=== PATIENT | female | born 1960 | race Caucasian/White ===

== ENCOUNTER 2023-05-27 08:43 | Outpatient (AMB) | payer OTHER, SELFPAY ==
--- NOTE | 2023-05-27 08:49 | A.OFFVIS_ITS ---
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 The patient states that she recently aggravated her shoulder while training for and participating in '[employer] She denies any weakness. She has tried Tylenol and anti- inflammatory medicines which gave her minimal relief. She has done physical therapy exercises which aggravated her pain. The patient states that she has not been able to train recently because of her pain. Most pain is along the anterior aspect of her shoulder. Allergies Latex, Natural Rubber Allergy (Verified 05/27/23 08:57) Rash Penicillins Allergy (Verified 05/27/23 08:57) Rash Medication List - Last Reconciled 05/27/23 by Joaquin Monroe MD albuterol sulfate 90 mcg/actuation 2 puffs inhalation Q6H PRN anastrozole 1 mg PO DAILY duloxetine 60 mg PO DAILY PFSH Surgical History (Updated 05/27/23 @ 08:58 by Ita Bustillo [facility]) History of hip replacement Hx of tonsillectomy H/O: hysterectomy H/O mastectomy Social History (Updated 05/27/23 @ 08:58 by Ita Bustillo [facility]) Patient Tobacco Use Status: Never used Tobacco Current occupational status: employed Current occupation: [employer] Physical Exam Vital Signs: BMI result Body Mass Index 22.3 Const Other: Well-nourished well-developed very friendly female awake alert and oriented x3 in no acute distress Extrem Other: Bilateral upper extremity examination shows good capillary refill, no skin lesions noted, normal sensation light touch Left shoulder examination shows decreased range of motion when compared to her right shoulder, 5/5 strength with supraspinatus testing, positive impingement signs, tenderness over her acromioclavicular joint, mild crepitus with range of motion Results Reviewed Results Reviewed: X-rays of the patient's left shoulder taken today show severe acromioclavicular joint narrowing, a type 2 acromion, moderate glenohumeral joint degenerative changes Assessment & Plan Assessment & Plan (1) Left shoulder pain: Code(s): M25.512 - Pain in left shoulder Plan Ms. Abraham presents with left shoulder pain and stiffness due to impingement syndrome, acromioclavicular joint arthritis, glenohumeral joint arthritis and adhesive capsulitis. I had a lengthy discussion with the patient regarding the treatment options. He is point she has failed continued non operative treatments. The risks and benefits of left shoulder arthroscopic surgery were discussed at length with the patient. The patient wishes to proceed with surgery. Surgery will most likely involve left shoulder diagnostic arthroscopy with distal clavicle excision, acromioplasty, anterior capsular release, glenohumeral joint debridement and manipulation under anesthesia. I will have my office contact the patient to pick a surgery date. She will continue with her activity modifications in the meantime. Feel free to call me at any time should questions regarding her orthopedic management arise. Thank you very much for asking me to see this very friendly patient. I spent 22 minutes in reviewing the patient's records and imaging studies, seeing the patient and documenting in the medical record. Orders: Orders XR shoulder LT min 2V Today M25.512 - Pain in left shoulder Coding Level of Care Code New Pt Level 2 (14399) Diagnoses Left shoulder pain M25.512
[2023-05-27 08:54] VITALS: BMI 22.3
== END 2023-05-27 09:18 | disposition home or self-care (01) ==
PROVIDERS: Visit Provider Orthopaedic Surgery
DX: M25.512 Pain in left shoulder (principal)
CPT/HCPCS: 99202

== ENCOUNTER 2023-05-27 09:07 | Outpatient (REF) | payer OTHER, SELFPAY ==
--- NOTE | ~2023-05-27 | XR_ITS ---
EXAMINATION: XR SHOULDER, LEFT CLINICAL INFORMATION: Left shoulder pain COMPARISON: None available. TECHNIQUE: Two views of the left shoulder. FINDINGS: Degenerative changes are seen at the glenohumeral joint. No fractures or dislocations. Calcification is noted overlying the region of the biceps tendon in the bicipital groove within the biceps tendon sheath. Calcifications are seen adjacent to a prominent coracoid process in the subcoracoid recess of the shoulder joint.. XR/XR shoulder LT min 2V IMPRESSION: 1. Degenerative changes glenohumeral joint. 2. Calcifications in the biceps tendon sheath and subcoracoid recess of the shoulder joint.
== END 2023-05-27 09:08 | disposition home or self-care (01) ==
LOC: HO.HOSX 09:07
PROVIDERS: Visit Provider Orthopaedic Surgery
DX: M25.512 Pain in left shoulder (principal)
CPT/HCPCS: 73030

== ENCOUNTER 2023-06-06 09:12 | Day surgery (SDC) | payer OTHER, SELFPAY ==
[2023-06-04 14:54] VITALS: BMI 22.3
--- NOTE | 2023-06-05 10:03 | P.CONAN_ITS ---
Documented by User: Sadaf Gayle NP 06/05/23 10:11 HPI - Anesthesia Eval Consult details Narrative: 62yo F for Left Shoulder Arthroscopy, distal clavicle excision, acromioplasty,capsular release manipulation Incomplete PMHx from surgical office and pt not reached by phone: Likely breast ca, ? asthma based on med list. PMFSH Active Problems Active Problems: All Active Problems (Updated 05/26/23 @ 11:41 by Joaquin Monroe MD) Left shoulder pain (Acute) Surgical History Surgical History (Updated 05/27/23 @ 08:58 by Ita Bustillo CMA) History of hip replacement Hx of tonsillectomy H/O: hysterectomy H/O mastectomy Social History Social History (Updated 05/27/23 @ 08:58 by Ita Bustillo CMA) Patient Tobacco Use Status: Never used Tobacco Use of substances other than those prescribed or required for medical reasons: No Are you DNR?: No Advance Directives: No Advance Directives Information Provided: Yes Current occupational status: employed Current occupation: [employer] Allergies Allergy/AdvReac Type Severity Reaction Status Date / Time Latex, Natural Rubber Allergy Rash Verified 06/06/23 09:55 Penicillins Allergy Rash Verified 06/06/23 09:55 Active Medications: Current Medications Clindamycin Phosphate (Cleocin) 900 mg in 50 mls @ 50 mls/hr IV PREOP ONE Stop: 06/06/23 06:51 Home Medications Medication Instructions Recorded Confirmed Last Taken Type albuterol sulfate 90 mcg/actuation 2 puff inhalation Q6H PRN wheezing 05/27/23 06/06/23 Unknown History aerosol inhaler anastrozole 1 mg tablet 1 mg PO DAILY 05/27/23 06/06/23 Unknown History duloxetine 60 mg capsule,delayed 60 mg PO DAILY 05/27/23 06/06/23 Unknown History release Exam Height,Weight and Vital Signs: Height 5 ft 11 in Weight 72.575 kg Assessment and Plan Assessment Anesthesia Assessment: Chart Reviewed Documented by User: Kendall Duncan MD 06/06/23 10:44 PMF Family History Family history of problems with anesthesia: No Surgical History Surgical History (Updated 05/27/23 @ 08:58 by Ita Bustillo CMA) History of hip replacement Hx of tonsillectomy H/O: hysterectomy H/O mastectomy History of Problems with Anesthesia: No Social History Social History (Updated 05/27/23 @ 08:58 by Ita Bustillo CMA) Patient Tobacco Use Status: Never used Tobacco Use of substances other than those prescribed or required for medical reasons: No Are you DNR?: No Advance Directives: No Advance Directives Information Provided: Yes Current occupational status: employed Current occupation: [employer] Allergies Allergy/AdvReac Type Severity Reaction Status Date / Time Latex, Natural Rubber Allergy Rash Verified 06/06/23 09:55 Penicillins Allergy Rash Verified 06/06/23 09:55 Home Medications Medication Instructions Recorded Confirmed Last Taken Type albuterol sulfate 90 mcg/actuation 2 puff inhalation Q6H PRN wheezing 05/27/23 06/06/23 Unknown History aerosol inhaler anastrozole 1 mg tablet 1 mg PO DAILY 05/27/23 06/06/23 Unknown History duloxetine 60 mg capsule,delayed 60 mg PO DAILY 05/27/23 06/06/23 Unknown Histor y release Exam Airway Mallampati Class: I TM Dist: >3cm Neck ROM: Full Heart: rrr Lungs: cta Assessment and Plan Assessment Anesthesia Assessment: Anesthesia Plan Discussed Final Anesthetic Review Family History of Problems with Anesthesia: No History of Problems with Anesthesia: No NPO: Yes ASA Class: I Final Preanesthetic Review: No Changes in Pt Med Stat, Meds/Allgs Chart Reviewed, Consent Obtained/Reviewed and Anes Risks/Benef Reviewed Patient Risk: Low Procedure Risk: Intermediate Anesthetic Plan Anesthetic Plan: GA and Regional Block Disposition: Standard PACU
[2023-06-06] VITALS (8 sets, daily range): BP systolic 116–133; BP diastolic 54–78; PULSE 58–73; RESP 12–18; TEMP 36.6–36.9; O2SAT 97–100
[2023-06-06] MEDS: Lactated Ringers 1,000 ML 100 ML IVCONT (10:09)
--- NOTE | 2023-06-06 13:01 | P.BOP_ITS ---
Brief Operative Note Date of Service: 06/06/23 Pre-op diagnosis: Left shoulder impingement syndrome, left shoulder acromioclavicular joint and glenohumeral joint arthritis, left shoulder adhesive capsulitis Post-op diagnosis: same Procedure: Left shoulder diagnostic arthroscopy with left shoulder arthroscopic acromioplasty, left shoulder arthroscopic distal clavicle excision, left shoulder arthroscopic glenohumeral joint debridement, left shoulder arthroscopic anterior capsular release, left shoulder manipulation under anesthesia Implants: none Surgeon: Joaquin Monroe MD Anesthesia: GLMA and regional Was an Medical Videographer used for this Procedure?: No Estimated blood loss (mL): 10 Pathology: none sent Condition: stable Disposition: PACU
--- NOTE | 2023-06-06 13:02 | P.OP_ITS ---
Operative Note Operative Note Date of Service: 06/06/23 Narrative: After the patient was identified as Viviana Abraham and her left shoulder was initialed by myself the patient was brought to the holding area where a left shoulder interscalene regional block was performed by the anesthesiologist in routine fashion. The patient was then brought to the operating room where general anesthesia was induced by the anesthesiologist in routine fashion. Because of the patient's allergy to penicillins she was given 900 mg of IV clindamycin preoperatively for infection prophylaxis. Examination under anesthesia of the patient's left shoulder showed decreased range of motion when compared to the right shoulder. The patient's left shoulder had forward flexion to 130 degrees compared to 170 degrees, external rotation to 40 degrees compared to 70 degrees, and internal rotation to 40 degrees compared to 50 degrees. The patient was gently positioned in the beach chair position with all bony prominences well padded. The patient's left shoulder region and upper extremity were prepped and draped in sterile fashion. A formal time-out was completed. A #11 scalpel blade was used to make a posterior portal 2 cm inferior and 1 cm medial to the posterolateral corner of the acromion. Blunt trocar technique was used to enter the glenohumeral joint in routine fashion. An anterior portal was made just lateral to the coracoid process after proper positioning was confirmed using a spinal needle. Diagnostic arthroscopy showed diffuse grade 2 and 3 degenerative changes of the articular surface of the glenoid as well as grades 3 and 4 degenerative changes of the humeral head articular surface. The articular surfaces of both were made smooth using the arthroscopic shaver. There was no evidence of rotator cuff tearing. There was no evidence of injury to the biceps tendon or its insertion onto the glenoid. There was inflammation of the anterior joint capsule consistent with adhesive capsulitis. The ArthroCare Wand was then used to perform an anterior capsular release between the inferior border of the biceps tendon and the superior border of the subscapularis tendon. The arthroscope was then placed from the posterior portal into the subacromial space. A lateral portal was made 2 fingerbreadths lateral to the anterior lateral corner of the acromion. The ArthroCare Wand was used to ablate soft tissues along the undersurface of the acromion as well as to excise the cor acoacromial ligament. There was a sharp spur along the undersurface of the acromion which was removed using the hooded bur. The arthroscope was then placed into the lateral portal and the acromioplasty was completed with the bur in the posterior portal using the posterior aspect of the acromion as a cutting block. The ArthroCare Wand was then brought in through the anterior portal and was used to ablate soft tissues along the acromioclavicular joint and distal clavicle. The posterior and superior ligamentous structures were left intact. A distal clavicle excision of 8 mm was performed using the hooded bur. Any remaining bursal tissue was removed using the arthroscopic shaver. The subacromial space was irrigated and then drained. All arthroscopic instruments were removed. A gentle manipulation under anesthesia was then performed. Full passive range of motion was easily obtained. The 3 portals were closed with 3-0 nylon interrupted suture. The subacromial space was injected with Marcaine. Dry sterile dressing was placed over all incisions. The patient's left upper extremity was placed into a sling. The patient was awoken and extubated in the operating room. The patient was transferred to the recovery room in stable condition.
== END 2023-06-06 14:45 | disposition home or self-care (01) ==
PROVIDERS: PCP Family Medicine; Visit Provider Orthopaedic Surgery
PROC: (CPT 29805; principal; 2023-06-06 11:10)
DX: M75.42 Impingement syndrome of left shoulder (principal); M75.02 Adhesive capsulitis of left shoulder; M19.012 Primary osteoarthritis, left shoulder
CPT/HCPCS: 29824; 29825; 29826; 29822; J0131; J0171; J0736; J1100; J1885; J2405; J2704; J2795

== ENCOUNTER → 2023-06-06 09:12 | Outpatient (BNV) | payer OTHER, SELFPAY | PROVIDERS: PCP Family Medicine; Visit Provider Orthopaedic Surgery | DX: M75.42 Impingement syndrome of left shoulder (principal); M19.012 Primary osteoarthritis, left shoulder; M75.02 Adhesive capsulitis of left shoulder; S43.52XA Sprain of left acromioclavicular joint, initial encounter | CPT/HCPCS: 29822; 29824; 29825; 29826 ==

== ENCOUNTER 2023-06-19 09:34 | Outpatient (AMB) | payer OTHER, SELFPAY ==
--- NOTE | 2023-06-19 09:38 | MHC.OFFVIS ---
Intake Intake Visit Reasons: PO-Lt Shld 06/06/23 Intake Note: Viviana is a 63 year old right hand dominant female who presents today for a post op appointment s/p left shoulder 06/06/23. Patient reports doing well. She reports mild to moderate discomfort in her left shoulder. She denies any fevers or chills. She continues with her stretching program will her Allergies Latex, Natural Rubber Allergy (Verified 06/19/23 09:38) Rash Penicillins Allergy (Verified 06/19/23 09:38) Rash Medication List - Last Reconciled 06/19/23 by Joaquin Monroe MD albuterol sulfate 90 mcg/actuation 2 puffs inhalation Q6H PRN anastrozole 1 mg PO DAILY duloxetine 60 mg PO DAILY oxycodone 10 mg (2 x 5 mg) PO Q4H PRN PFSH Surgical History (Updated 05/27/23 @ 08:58 by Ita Bustillo [facility]) History of hip replacement Hx of tonsillectomy H/O: hysterectomy H/O mastectomy Social History Patient Tobacco Use Status: Never used Tobacco Current occupational status: employed Current occupation: [employer] Physical Exam Extrem Other: Left shoulder examination shows that the surgical incisions are healing well, no erythema, almost full range of motion when compared to her right shoulder, mild discomfort with range of motion Assessment & Plan Assessment & Plan (1) Left shoulder pain: Code(s): M25.512 - Pain in left shoulder Plan Ms. Abraham is doing well after undergoing left shoulder arthroscopic surgery on June 06. Her sutures were removed and Steri-Strips placed over her incisions. She will continue with her home stretching program to prevent stiffness. Activity modifications were discussed at length with the patient. The patient will contact me prior to her follow-up appointment in August should any questions or concerns arise. Feel free to call me at any time should questions regarding her orthopedic management arise. Coding Level of Care Code Global (95083) Diagnoses Left shoulder pain M25.512
== END 2023-06-19 09:59 | disposition home or self-care (01) ==
PROVIDERS: Visit Provider Orthopaedic Surgery
DX: M25.512 Pain in left shoulder (principal)
CPT/HCPCS: 99024

== ENCOUNTER → 2023-06-19 09:34 | Outpatient (BNVA) | payer OTHER, SELFPAY | PROVIDERS: Visit Provider Orthopaedic Surgery ==

== ENCOUNTER 2023-07-23 11:34 | Outpatient (AMB) | payer OTHER, SELFPAY ==
--- NOTE | 2023-07-23 11:35 | MHC.OFFVIS ---
Intake Intake Visit Reasons: ov-Lt Shld 06/06/23 Intake Note: Viviana is a 63 year old Right handed female who presents for a post operative appointment S/P Left shoulder 06/06/2023 Patient reports she is doing well. The patient states that she did aggravate her left shoulder while using her rowing machine for 20 minutes several days ago. She denies any fevers or chills. She continues with her home stretching program. Allergies Latex, Natural Rubber Allergy (Verified 07/23/23 11:44) Rash Penicillins Allergy (Verified 07/23/23 11:44) Rash Medication List - Last Reconciled 07/23/23 by Joaquin Monroe MD albuterol sulfate 90 mcg/actuation 2 puffs inhalation Q6H PRN anastrozole 1 mg PO DAILY duloxetine 60 mg PO DAILY oxycodone 10 mg (2 x 5 mg) PO Q4H PRN PFSH Surgical History Hx of shoulder surgery (06/06/23) History of hip replacement Hx of tonsillectomy H/O: hysterectomy H/O mastectomy Social History Patient Tobacco Use Status: Never used Tobacco Current occupational status: employed Current occupation: [employer] Physical Exam Extrem Other: Examination of the patient's left shoulder shows that the surgical incisions are well healed, no erythema, slightly decreased range of motion when compared to her right shoulder, minimal discomfort with range of motion, 5/5 strength with supraspinatus testing Assessment & Plan Assessment & Plan (1) Left shoulder pain: Code(s): M25.512 - Pain in left shoulder Plan: Ms. Abraham continues to do well after undergoing left shoulder arthroscopic surgery on May 1023. She will continue with her home exercise program. Activity at length with the patient. She will contact me prior to her follow-up appointment in 6 weeks should any questions or concerns arise. Feel free to call me at any time should questions regarding her orthopedic management arise. Coding Level of Care Code Global (98075) Diagnoses Left shoulder pain M25.512
== END 2023-07-23 12:03 | disposition home or self-care (01) ==
PROVIDERS: Visit Provider Orthopaedic Surgery
DX: M25.512 Pain in left shoulder (principal)
CPT/HCPCS: 99024

== ENCOUNTER → 2023-07-23 11:34 | Outpatient (BNVA) | payer OTHER, SELFPAY | PROVIDERS: Visit Provider Orthopaedic Surgery ==

== ENCOUNTER 2023-09-02 08:39 | Outpatient (AMB) | payer OTHER, SELFPAY ==
--- NOTE | 2023-09-02 08:40 | MHC.OFFVIS ---
Intake Intake Visit Reasons: PO-Lt Shld 06/06/23 Intake Note: Viviana is a 63 year old female who present for her post operative appointment s/p Left shoulder on 06/06/2023. Patient reports continued mild to moderate discomfort in her left shoulder. She is due to go to [place] for a [email or web address] program next month. She denies any fevers or chills. She has taken ibuprofen which gives her mild relief. Allergies Latex, Natural Rubber Allergy (Verified 09/02/23 08:43) Rash Penicillins Allergy (Verified 09/02/23 08:43) Rash Medication List - Last Reconciled 09/02/23 by Joaquin Monroe MD albuterol sulfate 90 mcg/actuation 2 puffs inhalation Q6H PRN anastrozole 1 mg PO DAILY duloxetine 60 mg PO DAILY montelukast 10 mg PO DAILY oxycodone 10 mg (2 x 5 mg) PO Q4H PRN PFSH Surgical History Hx of shoulder surgery (06/06/23) History of hip replacement Hx of tonsillectomy H/O: hysterectomy H/O mastectomy Social History Patient Tobacco Use Status: Never used Tobacco Current occupational status: employed Current occupation: [employer] Physical Exam Const Other: Well-nourished well-developed very friendly female awake alert and oriented x3 in no acute distress Extrem Other: Bilateral upper extremity examination shows good capillary refill, no skin lesions noted, normal sensation light touch Left shoulder examination shows almost full range of motion when compared to her right shoulder, mild crepitus with range of motion, no instability Office Procedures Joint Injection/Drain Joint Injection/Drain Primary Site: left shoulder Prep: site was prepped using aseptic technique Injected: 40 mg of, DepoMedrol and 1% plain lidocaine Procedure: The patient tolerated the procedure well Coding 39078 - Large joint Procedure code (CPT) selection complete Assessment & Plan Assessment & Plan (1) Arthritis of left shoulder region: Code(s): M19.012 - Primary osteoarthritis, left shoulder Plan Ms. Abraham presents with residual left shoulder discomfort after undergoing arthroscopic surgery due to glenohumeral joint arthritis. I had a lengthy discussion with the patient regarding the treatment options. The risks and benefits of a cortisone injection were discussed at length with the patient. The patient wished to proceed. She tolerated the injection well. She will continue with her range of motion exercises to prevent stiffness. She will follow up with me on an as-needed basis should her symptoms not plateau at an unacceptable level over the next few months. I spent 19 minutes in reviewing the patient's records and imaging studies, seeing the patient and documenting in the medical record. Orders: Orders AMB Joint Injection/Aspiration Today M19.012 - Primary osteoarthritis, left shoulder Coding Level of Care Code Procedure Only Diagnoses Arthritis of left shoulder region M19.012 CPT Codes Coding - 66753 Large joint: 88896 - Large joint ([id number])
== END 2023-09-02 09:08 | disposition home or self-care (01) ==
PROVIDERS: Visit Provider Orthopaedic Surgery
DX: M19.012 Primary osteoarthritis, left shoulder (principal)
CPT/HCPCS: 20610

== ENCOUNTER → 2023-09-02 08:39 | Outpatient (BNVA) | payer OTHER, SELFPAY | PROVIDERS: Visit Provider Orthopaedic Surgery | DX: M19.012 Primary osteoarthritis, left shoulder (principal) | CPT/HCPCS: 20610; J1020 ==

== ENCOUNTER 2023-11-20 09:42 | Outpatient (AMB) | payer OTHER, SELFPAY ==
--- NOTE | 2023-11-20 10:04 | A.OFFVIS_ITS ---
Vital Signs 11/20/23 10:31 Height 5 ft 11 in Weight 160 lb BMI 22.3 Intake Visit Reasons: Newprob-lower back pain Intake Note: Viviana is a 63 year old female who presents today for a evaluation of her lower back pain. Injury? Patient reports ongoing pain for many years and in the past 2 years she was splitting wood and she felt a really bad back spasm. She states that her pain is focused in her whole lower back and sometime her left foot gets numb. Pain is worse when she is bending forward and carrying heavy items. No previous treatment. She finds mild relief with NSAIDs/Tylenol and alternating with ice and heat. Hx of being diagnosed with spinal stenosis. Allergies Latex, Natural Rubber Allergy (Verified 11/20/23 10:09) Rash Penicillins Allergy (Verified 11/20/23 10:09) Rash Medication List - Last Reconciled 11/20/23 by Pamella Pinzon MD albuterol sulfate 90 mcg/actuation 2 puffs inhalation Q6H PRN duloxetine 60 mg PO DAILY montelukast 10 mg PO DAILY HPI Comments Details: Chronic pain, worsened 2 years ago, diagnosed spinal stenosis which improved rest and conservative management. Recently lifted a desk a month ago, and worsened pain since, lower midline back, but now with new weakness/foot drop and numbness on left foot. Foot strength is improved by now but still tingling. Can't remember when last MRI was. She is very active, dragon boating. Sits a lot at work - aggravates. Treatment done so far: NSAIDs ice Follows Dr. Monroe - s/p Left shoulder on 06/06/2023; received injection last 09/02/23. [facility] Medical History (Updated 11/20/23 @ 10:51 by Pamella Pinzon MD) History of spinal stenosis Surgical History Hx of shoulder surgery (06/06/23) History of hip replacement Hx of tonsillectomy H/O: hysterectomy H/O mastectomy Social History Patient Tobacco Use Status: Never used Tobacco Current occupational status: employed Current occupation: [employer] Review of Systems Const All systems reviewed & are unremarkable except as noted in HPI and below Physical Exam Vital Signs: BMI result Body Mass Index 22.3 Constitutional: Patient appears to be in no acute distress, well nourished and well developed. Patient was appropriately conversant and oriented. Good historian. MSK: No specific abnormalities found on inspection of the spine and all extremities. No pain with palpation over the lumbar area. Lumbar ROM was full. Bilateral hip, knee and ankle ROM WNL. No ligamentous laxity or crepitance. No increased effusion. Straight-leg raising test negative. FABERE test negative. Strength is 5/5 in all muscle groups tested. No increased tone noted. Neurological: Neurologic examination of the upper and lower extremities was nonfocal with intact sensation, muscle stretch reflexes and without focal motor deficits except for paresthesias/decreased sensation right foot. Valle?s negative bilaterally. Babinski was down going bilaterally. Clonus was negative. Gait is non-antalgic without loss of balance. Results Reviewed Results Reviewed: I independently reviewed the results of the following: Lumbar x-rays done in the office showed decreased disc space L4-5 and L5-S1 I reviewed records from the following: Orthopedics Assessment & Plan Assessment & Plan (1) Acute lumbar radiculopathy: Code(s): M54.16 - Radiculopathy, lumbar region Category: Medical (2) History of spinal stenosis: Code(s): Z87.39 - Personal history of other diseases of the musculoskeletal system and connective tissue Category: Medical Plan Symptoms/history suggests that she had experienced acute radiculopathy, L5. Although symptoms are somewhat improved by now, we should further investigate if there are intervention that can be done to mitigate or prevent worsening. Patient had undergone adequate conservative management including home exercises without improvement of condition. It would be reasonable to obtain further imaging such as MRI. An MRI would help rule out any serious condition, guide treatment and assess prognosis for recovery. Specifically ruling out right L5 nerve root compression. Assessment and plan discussed with patient, and patient was agreeable. All questions were answered thoroughly. Follow-up after MRI. Pamella Pinzon MD, MAYURI Board Certified, [place] [employer] and Rehabilitation (ABPMR) Board Certified, [place] [employer] Electrodiagnostic [employer] (ABEM) Orders: Orders XR lumbar spine 2-3V Today M54.9 - Dorsalgia, unspecified MR lumbar spine wo con Today M54.16 - Radiculopathy, lumbar region, Z87.39 - Personal history of other diseases of the musculoskeletal system and connective tissue Coding Level of Care Code New Pt Level 4 (87686) Diagnoses Acute lumbar radiculopathy M54.16 History of spinal stenosis Z87.39
[2023-11-20 10:31] VITALS: BMI 22.3
== END 2023-11-20 10:55 | disposition home or self-care (01) ==
PROVIDERS: Visit Provider Physical Medicine & Rehabilitation
DX: M54.16 Radiculopathy, lumbar region (principal); Z87.39 Personal history of other diseases of the musculoskeletal system and connective tissue
CPT/HCPCS: 99204

== ENCOUNTER 2023-11-20 10:10 | Outpatient (REF) | payer OTHER, SELFPAY ==
--- NOTE | ~2023-11-20 | XR_ITS ---
EXAMINATION: XR LUMBOSACRAL SPINE CLINICAL INFORMATION: Back pain COMPARISON: None available. TECHNIQUE: Three views of the lumbosacral spine. FINDINGS: The bones are diffusely demineralized. Mild dextroscoliosis of the thoracolumbar spine. Facet arthritis in the [id number] lumbar spine. Multilevel lumbar spondylosis with moderate loss of disc space height at L5-S1. Mild grade 1 anterolisthesis of L5 on S1. XR/XR lumbar spine 2-3V IMPRESSION: Multilevel lumbar spondylosis with moderate loss of disc space height at L5-S1.
== END 2023-11-20 10:11 | disposition home or self-care (01) ==
LOC: HO.HOSX 10:10
PROVIDERS: Visit Provider Physical Medicine & Rehabilitation
DX: M54.50 Low back pain, unspecified (principal)
CPT/HCPCS: 72100

== ENCOUNTER 2023-11-21 18:03 | Outpatient (REF) | payer OTHER, SELFPAY ==
--- NOTE | ~2023-11-21 | MR_ITS ---
EXAMINATION: MR LUMBAR SPINE WITHOUT CONTRAST CLINICAL INFORMATION: 63-year-old female, Low back pain with radiculopathy/numbness traveling down posterior lateral left leg. History of bilateral total hip replacements. COMPARISON: None available. Correlation made with lumbar spine x-rays 11/20/2023. TECHNIQUE: MRI of the lumbar spine was obtained using routine sequences without contrast. FINDINGS: Coronal Alignment: There is a mild dextroconvex scoliosis, apex at L1. Sagittal Alignment: Normal lordosis. There is a 2 mm retrolisthesis of L3 upon L4, 3 mm retrolisthesis L4 upon L5, and 3 mm anterolisthesis L5 on S1. Lumbosacral Junction: 6 nonrib-bearing vertebral bodies are present, however the aortic bifurcation occurs at L4, the conus terminates at L1 L1, and the iliolumbar ligaments are seen arising from L5) MR series 5, image 31). For the purposes of this report, the L5-S1 disc space is located on axial series 5, image 35. Confirmation of counting is recommended if intervention is planned. Vertebral Bodies/Bone Marrow: No compression deformities. No infiltrating abnormal bone marrow signal. No bone marrow edema. Fatty type endplate changes at L5-S1. Schmorl's node present in the right inferior endplate of L1. Discs: There is moderate loss of disc height and signal at L5-S1, with similar changes at L4-L5. Mild loss at T12-L1, L1-L2, and L3-L4. There is preservation of height and signal at L2-L3. Spinal Canal: No abnormal developmental findings. Conus Medullaris: Terminates at L1. Morphology and signal is normal. Intradural Nerve Roots: Normal in appearance. No masses or clumping identified. Axial Disc Space Images: T12-L1: There is a shallow diffuse bulging disc with a superimposed small central disc protrusion. This indents upon the ventral thecal sac and resultant mild central canal narrowing. Mild degenerative facet changes bilaterally. There is no subarticular recess narrowing or neural foraminal narrowing. L1-L2: Shallow diffuse disc bulge is present with a central annular fissure, extending slightly asymmetrically into the right greater than left foraminal zones. This indents upon the ventral thecal sac but does not appear to contact or displace nerve roots. Mild hypertrophic degenerative facet changes are present bilaterally with mild posterior ligamentous infolding/thickening. There is mild central canal narrowing, mild left greater than right subarticular recess narrowing, and there is minimal bilateral neural foraminal narrowing. L2-L3: Shallow diffuse bulging disc is present extending into the bilateral foraminal zones, moderate left greater than right hypertrophic degenerative facet changes, moderate posterior ligamentous thickening/infolding, with the combination of findings resulting in mild central canal stenosis. There is mild to moderate left subarticular recess stenosis with contact but no definite impingement of the traversing left L3 roots. There is mild right subarticular recess narrowing. There is mild bilateral neural foraminal narrowing. L3-L4: Diffusely bulging disc is present, extending into the bilateral foraminal zones symmetrically. Moderate hypertrophic degenerative facet changes are present bilaterally, with posterior ligamentous thickening/infolding. Combination of findings is resulting in mild bilateral subarticular recess narrowing right greater than left, mild central canal narrowing, and mild to moderate bilateral neural foraminal narrowing. No evidence of nerve root impingement or deviation. L4-L5: There is a diffuse bulging disc present extending into both foraminal zones symmetrically, with a small superimposed central disc protrusion. This indents upon the ventral thecal sac, and coupled with moderate hypertrophic degenerative facet changes bilaterally, and posterior ligamentous thickening/infolding, is resulting in mild central canal narrowing, mild to moderate right greater than left subarticular recess narrowing with contact but no definite impingement of the traversing right greater than left L5 nerve roots. There is moderate bilateral neural foraminal narrowing without definite impingement or deformation of the exiting L4 roots. L5-S1: There is a diffuse disc bulge present, with superimposed bilateral foraminal disc osteophytic extrusions with associated right greater than left annular fissuring. There are mild to moderate hypertrophic degenerative facet changes bilaterally, with mild posterior ligamentous infolding/thickening. Combination of findings is resulting in minimal subarticular recess narrowing left greater than right without evidence of nerve root contact or impingement. There is no significant central canal narrowing. There is mild to moderate left and moderate right neural foraminal narrowing with contact but no deformation of the exiting right greater than left L5 roots. Imaged SI Joints: Mild to moderate degenerative arthritis bilaterally. Paravertebral and Included Extraspinal Soft Tissues: Aorta is normal in caliber. No adenopathy detected. Normal-appearing kidneys. Paraspinous musculature appears normal. No paraspinal edema identified. Susceptibility artifact from bilateral hip replacements. MR/MR lumbar spine wo con IMPRESSION: 1. Mild to moderate multilevel lumbar spondylosis as discussed above, most significant at L3-L4, L4-L5, and L5-S1. There is no high-grade central canal narrowing, lateral recess narrowing, or neural foraminal narrowing. No evidence of nerve root impingement is seen. See the body the report for details. No obvious etiology for left lower extremity posterior radicular symptoms. 2. There is a mild dextroconvex scoliosis centered at L1. 3. There is a 2 mm retrolisthesis of L3 upon L4, 3 mm retrolisthesis L4 upon L5, and 3 mm anterolisthesis L5 on S1. 4. Multilevel facet degeneration as discussed.
== END 2023-11-21 18:04 | disposition home or self-care (01) ==
LOC: HO.MRI 18:03
PROVIDERS: Visit Provider Physical Medicine & Rehabilitation
DX: M54.16 Radiculopathy, lumbar region (principal); Z87.39 Personal history of other diseases of the musculoskeletal system and connective tissue
CPT/HCPCS: 72148

== ENCOUNTER → 2023-11-21 18:03 | Outpatient (BNV) | payer OTHER, SELFPAY | PROVIDERS: Visit Provider Radiology Diagnostic Radiology | DX: M47.816 Spondylosis without myelopathy or radiculopathy, lumbar region (principal) | CPT/HCPCS: 72148 ==

== ENCOUNTER 2023-12-18 10:42 | Outpatient (AMB) | payer OTHER, SELFPAY ==
--- NOTE | 2023-12-18 10:43 | MHC.OFFVIS ---
Vital Signs 12/18/23 10:45 Height 5 ft 11 in Weight 160 lb BMI 22.3 Intake Visit Reasons: OV-lower back pain-Follow up Intake Note: Viviana is a 63 year old female who presents today for a follow up of lower back pain. Lumbar spine MRI done on 11/21/23. Patient reports she is a very active person and her lower back pain is limiting her activities. She would like to discuss MRI results today. Allergies Latex, Natural Rubber Allergy (Verified 12/18/23 10:45) Rash Penicillins Allergy (Verified 12/18/23 10:45) Rash Medication List - Last Reconciled 12/18/23 by Pamella Pinzon MD albuterol sulfate 90 mcg/actuation 2 puffs inhalation Q6H PRN duloxetine 60 mg PO DAILY montelukast 10 mg PO DAILY trazodone 50 mg PO BEDTIME HPI Comments Details: Chronic pain, worsened 2 years ago, was told to have spinal stenosis which improved rest and conservative management. Recently lifted a desk a month ago, and worsened pain since, lower midline back, but now with new weakness/foot drop and numbness on left foot. Foot strength is improved by now but still tingling. She is very active, dragon boating. Sits a lot at work - aggravates. Treatment done so far: NSAIDs ice When she has the pain, it is across lower back. No radiation to legs, only after major back pain, if she had done something more heavy. She does feel a little numbness still on the left. [facility] Medical History History of spinal stenosis Surgical History Hx of shoulder surgery (06/06/23) History of hip replacement Hx of tonsillectomy H/O: hysterectomy H/O mastectomy Social History Patient Tobacco Use Status: Never used Tobacco Current occupational status: employed Current occupation: [employer] Physical Exam Vital Signs: BMI result Body Mass Index 22.3 Constitutional: Patient appears to be in no acute distress, well nourished and well developed. Patient was appropriately conversant and oriented. Good historian. MSK: No specific abnormalities found on inspection of the spine and all extremities. No pain with palpation over the lumbar area. SI joint nontender. GT nontender. Lumbar ROM was full. Bilateral hip, knee and ankle ROM WNL. No ligamentous laxity or crepitance. No increased effusion. Strength is 5/5 in all muscle groups tested. No increased tone noted. Neurological: Neurologic examination nonfocal. Gait is non-antalgic without loss of balance. Results Reviewed Results Reviewed: Ordering Physician: Pamella Dooley Date of Service: 11/21/23 Procedure(s): MR lumbar spine wo con Accession Number(s): [id number] cc: Pamella Dooley~ EXAMINATION: MR LUMBAR SPINE WITHOUT CONTRAST CLINICAL INFORMATION: 63-year-old female, Low back pain with radiculopathy/numbness traveling down posterior lateral left leg. History of bilateral total hip replacements. COMPARISON: None available. Correlation made with lumbar spine x-rays 11/20/2023. TECHNIQUE: MRI of the lumbar spine was obtained using routine sequences without contrast. FINDINGS: Coronal Alignment: There is a mild dextroconvex scoliosis, apex at L1. Sagittal Alignment: Normal lordosis. There is a 2 mm retrolisthesis of L3 upon L4, 3 mm retrolisthesis L4 upon L5, and 3 mm anterolisthesis L5 on S1. Lumbosacral Junction: 6 nonrib-bearing vertebral bodies are present, however the aortic bifurcation occurs at L4, the conus terminates at L1 L1, and the iliolumbar ligaments are seen arising from L5) MR series 5, image 31). For the purposes of this report, the L5-S1 disc space is located on axial series 5, image 35. Confirmation of counting is recommended if intervention is planned. Vertebral Bodies/Bone Marrow: No compression deformities. No infiltrating abnormal bone marrow signal. No bone marrow edema. Fatty type endplate changes at L5-S1. Schmorl's node present in the right inferior endplate of L1. Discs: There is moderate loss of disc height and signal at L5-S1, with similar changes at L4-L5. Mild loss at T12-L1, L1-L2, and L3-L4. There is preservation of height and signal at L2-L3. Spinal Canal: No abnormal developmental findings. Conus Medullaris: Terminates at L1. Morphology and signal is normal. Intradural Nerve Roots: Normal in appearance. No masses or clumping identified. Axial Disc Space Images: T12-L1: There is a shallow diffuse bulging disc with a superimposed small central disc protrusion. This indents upon the ventral thecal sac and resultant mild central canal narrowing. Mild degenerative facet changes bilaterally. There is no subarticular recess narrowing or neural foraminal narrowing. L1-L2: Shallow diffuse disc bulge is present with a central annular fissure, extending slightly asymmetrically into the right greater than left foraminal zones. This indents upon the ventral thecal sac but does not appear to contact or displace nerve roots. Mild hypertrophic degenerative facet changes are present bilaterally with mild posterior ligamentous infolding/thickening. There is mild central canal narrowing, mild left greater than right subarticular recess narrowing, and there is minimal bilateral neural foraminal narrowing. L2-L3: Shallow diffuse bulging disc is present extending into the bilateral foraminal zones, moderate left greater than right hypertrophic degenerative facet changes, moderate posterior ligamentous thickening/infolding, with the combination of findings resulting in mild central canal stenosis. There is mild to moderate left subarticular recess stenosis with contact but no definite impingement of the traversing left L3 roots. There is mild right subarticular recess narrowing. There is mild bilateral neural foraminal narrowing. L3-L4: Diffusely bulging disc is present, extending into the bilateral foraminal zones symmetrically. Moderate hypertrophic degenerative facet changes are present bilaterally, with posterior ligamentous thickening/infolding. Combination of findings is resulting in mild bilateral subarticular recess narrowing right greater than left, mild central canal narrowing, and mild to moderate bilateral neural foraminal narrowing. No evidence of nerve root impingement or deviation. L4-L5: There is a diffuse bulging disc present extending into both foraminal zones symmetrically, with a small superimposed central disc protrusion. This indents upon the ventral thecal sac, and coupled with moderate hypertrophic degenerative facet changes bilaterally, and posterior ligamentous thickening/infolding, is resulting in mild central canal narrowing, mild to moderate right greater than left subarticular recess narrowing with contact but no definite impingement of the traversing right greater than left L5 nerve roots. There is moderate bilateral neural foraminal narrowing without definite impingement or deformation of the exiting L4 roots. L5-S1: There is a diffuse disc bulge present, with superimposed bilateral foraminal disc osteophytic extrusions with associated right greater than left annular fissuring. There are mild to moderate hypertrophic degenerative facet changes bilaterally, with mild posterior ligamentous infolding/thickening. Combination of findings is resulting in minimal subarticular recess narrowing left greater than right without evidence of nerve root contact or impingement. There is no significant central canal narrowing. There is mild to moderate left and moderate right neural foraminal narrowing with contact but no deformation of the exiting right greater than left L5 roots. Imaged SI Joints: Mild to moderate degenerative arthritis bilaterally. Paravertebral and Included Extraspinal Soft Tissues: Aorta is normal in caliber. No adenopathy detected. Normal-appearing kidneys. Paraspinous musculature appears normal. No paraspinal edema identified. Susceptibility artifact from bilateral hip replacements. MR/MR lumbar spine wo con IMPRESSION: 1. Mild to moderate multilevel lumbar spondylosis as discussed above, most significant at L3-L4, L4-L5, and L5-S1. There is no high-grade central canal narrowing, lateral recess narrowing, or neural foraminal narrowing. No evidence of nerve root impingement is seen. See the body the report for details. No obvious etiology for left lower extremity posterior radicular symptoms. 2. There is a mild dextroconvex scoliosis centered at L1. 3. There is a 2 mm retrolisthesis of L3 upon L4, 3 mm retrolisthesis L4 upon L5, and 3 mm anterolisthesis L5 on S1. 4. Multilevel facet degeneration as discussed. Follows Dr. Monroe - s/p Left shoulder on 06/06/2023; received injection last 09/02/23. Assessment & Plan Assessment & Plan (1) Lumbar strain: Code(s): S39.012A - Strain of muscle, fascia and tendon of lower back, initial encounter Category: Medical Qualifiers: Encounter type: subsequent encounter Qualified Code(s): S39.012D - Strain of muscle, fascia and tendon of lower back, subsequent encounter (2) Sacroiliac joint dysfunction of both sides: Code(s): M53.3 - Sacrococcygeal disorders, not elsewhere classified Category: Medical (3) Acute lumbar radiculopathy: Code(s): M54.16 - Radiculopathy, lumbar region Category: Medical Plan We looked at MRI images together and also used a spine model. 1. I think with the mechanics of [employer] boating, she has tendency to have SI joint dysfunction. It is not tender to touch. But it makes sense that one side gets stuck and contralateral is more mobile with how the mechanics of [employer] boating is. She could try manual manipulation for SI joint symmetry via PT or chiropractor. She verbalizes understanding of what SI joint dysfunction is. 2. Heavy lifting or exertion usually affects her 2 or 3 days after. It is possible with the DOMs or delayed onset muscle soreness after exercises. This is a natural phenomenon. Patient understands. Highly recommend that she continues with maintenance core stretching and exercises in between [employer] boating or vigorous sports. 3. Although the MRI does not show any significant spinal stenosis or nerve compression, there is foraminal stenosis at L4-5 bilateral from a symmetric disc bulge. It is possible that a few months ago, she had inflammation near the left L5 nerve root. She has regained full strength back. However she continues to have left foot numbness. I suspect this would continue to get better. If it becomes chronic and continues to bother her, we could consider the transforaminal epidural injection under pain management department. 4. Lastly, MRI does show facet arthritis. This would give her tendency for chronic axial nonradicular back pain. Assessment and plan discussed with patient, and patient was agreeable. All questions were answered thoroughly. Follow-up as needed. Pamella Pinzon MD, MAYURI Board Certified, [place] [employer] and Rehabilitation (ABPMR) Board Certified, [place] [employer] Electro[employer]ostic [employer] (ABEM) Coding Level of Care Code Est Pt Level 4 (48502) Diagnoses Strain of lumbar region, subsequent encounter S39.012D Encounter type: subsequent encounter Sacroiliac joint dysfunction of both sides M53.3 Acute lumbar radiculopathy M54.16
[2023-12-18 10:45] VITALS: BMI 22.3
== END 2023-12-18 11:08 | disposition home or self-care (01) ==
LOC: HO.HOS 10:42
PROVIDERS: PCP Family Medicine; Visit Provider Physical Medicine & Rehabilitation
DX: S39.012D Strain of muscle, fascia and tendon of lower back, subsequent encounter (principal); M53.3 Sacrococcygeal disorders, not elsewhere classified; M54.16 Radiculopathy, lumbar region
CPT/HCPCS: 99213

== ENCOUNTER → 2023-12-18 10:42 | Outpatient (BNVA) | payer OTHER, SELFPAY | PROVIDERS: PCP Family Medicine; Visit Provider Physical Medicine & Rehabilitation ==

== ENCOUNTER 2024-09-13 09:19 | Emergency (ER) | payer OTHER, SELFPAY ==
--- NOTE | ~2024-09-13 | CT_ITS ---
CLINICAL HISTORY: Inc visual migraine freq, history of meningioma CT head without contrast Comparison: None Findings: No intra-axial mass, midline shift, hydrocephalus, or acute hemorrhage. No significant atrophy-like change or white matter disease. Maxillary sinus mucosal thickening is present with opacification of scattered ethmoid air cells and bilateral frontal sinuses. Mastoid air cells are clear. The orbits are unremarkable. No skull fracture. IMPRESSION: 1. No acute intracranial findings. This document has been electronically signed by: Devin Reynoso MD, PHD on 09/13/2024 20:27:42
[2024-09-13 10:29] VITALS: BP 137/85; PULSE 69; RESP 16; TEMP 36.4; O2SAT 98; BMI 21.8
[2024-09-13 12:53] LABS: MANUAL DIFF FLAG NO
[2024-09-13 12:54] LABS: Basophils Absolute Auto 0.1 X10*3/uL (0.0-0.2); Basophils Percent Auto 1.2 % (0-2); Eosinophils Absolute Auto 0.2 X10*3/uL (0.0-0.4); Eosinophils Percent Auto 3.1 % (0-4); Hematocrit 44.5 % (37.0-47.0); Hemoglobin 14.2 g/dl (12.0-16.0); Imm Gran Abs Auto 0.02 X10*3/uL (0.00-0.03); Imm Gran Pct Auto 0.3 % (0.0-0.4); Mean Corpuscular HGB Conc 31.9 g/dl (31.0-35.0); Mean Corpuscular Hemoglobin 29.2 pg (27.0-33.0); Mean Corpuscular Volume 91.6 fL (80.0-98.0); Mean Platelet Volume 9.8 fL (9.4-12.3); Monocytes Absolute Auto 0.6 X10*3/uL (0.1-1.2); Monocytes Percent Auto 8.5 % (2-11); Neutrophils Absolute Auto 4.9 x10*3/uL (2.0-8.3); Neutrophils Percent Auto 71.9 % (45-73); Platelet Count 242 X10*3/uL (160-400); Red Blood Count 4.86 X10*6/uL (4.20-5.50); Red Cell Distribution Width 13.1 % (11.0-16.0); White Blood Count 6.9 X10*3/uL (4.8-10.8)
[2024-09-13 13:24] LABS: Alanine Aminotransferase 108 U/L (0-31); Albumin Level 3.8 g/dL (3.5-5.0); Alkaline Phosphatase 151 U/L (39-117); Anion Gap 11 (12-20); Aspartate Amino Transferase 92 U/L (5-31); Bilirubin Total 0.4 mg/dL (0.0-1.0); Blood Urea Nitrogen 12 mg/dL (9-16); Carbon Dioxide 26 mmol/L (22-29); Chloride 106 mmol/L (96-108); Creatinine Clr Calc Pharmacy 89.3; Estimated Glomerular Filt Rate > 60; Glucose Random 115 mg/dL (60-115); Magnesium 2.1 mg/dL (1.6-2.6); Potassium 4.8 mmol/L (3.3-5.1); Sodium 138 mmol/L (135-145); Total Protein 6.5 g/dL (6.5-8.0)
[2024-09-13 17:44] VITALS: BP 127/85; PULSE 68; RESP 16; TEMP 36.8; O2SAT 97
[2024-09-13 17:57] LABS: Appearance Urine Clear; Color Urine Yellow; Glucose Urine UA Negative (Negative); Leukocyte Esterase Urine Moderate (2+) (Negative); Nitrite Urine Negative (Negative); PH 5.5 (5.0-9.0); Specific Gravity - Urine 1.015 (1.005-1.025); UMIC TRIGGER UACC YES; Urine Blood Negative (Negative); Urine Ketones Negative (Negative); Urine Protein Negative (Neg-Trace)
[2024-09-13 18:02] LABS: Bacteria Urine None Seen (None Seen); Hyaline Casts Urine 0-2 /LPF (0-2); RBC Urine 0-2 /HPF (0-2); Squamous Epithelial Cell Urine 0-2 /HPF (0-2); UACC Culture Trigger YES
--- NOTE | 2024-09-13 18:17 | ED.GENADULT ---
HPI - General Adult General Chief complaint: Headache Stated complaint: confusion migraine vission issue Time Seen by Provider: 09/13/24 17:45 Source: patient Mode of arrival: ambulatory Limitations: no limitations History of Present Illness ED Provider: Eloise Campo NP HPI narrative: Patient is a 64-year-old female with past medical history of asthma, depression, visual migraine, breast cancer S/P bilateral mastectomy and chemotherapy in remission over the past 2 years who presents emergency department for evaluation. She reports a history of visual migraines that typically occur a few times annually described as intense nausea with a zigzag pattern in her vision. Has no associated pain with these. She states that over the past couple of weeks she has had an increased frequency in these visual migraines occurring 2-3 times per week which again is atypical for her. She states that 2 days ago she had associated confusion with an episode that lasted approximately an hour, she was not sure what day it was, she was experiencing a purple [place] in her site of vision through the left eye. She contact your primary care doctor who advised that she come to the emergency department for evaluation. She does admit that she had an episode of intense vertigo in May of 2024, and since then she has had frequent episodes of mild ?dizziness? not able to describe the dizziness sensation that she experiences just ?slightly dizzy? but without unsteady gait. She denies associated headache, neck pain, neck stiffness, chest pain, shortness of breath, numbness or tingling of the extremities. Related Data Home Medications ?Medication ?Instructions ?Recorded ?Confirmed albuterol sulfate 90 mcg/actuation 2 puff inhalation Q6H PRN wheezing 05/27/23 12/18/23 aerosol inhaler duloxetine 60 mg capsule,delayed 60 mg PO DAILY 05/27/23 12/18/23 release montelukast 10 mg tablet 10 mg PO DAILY 09/02/23 12/18/23 trazodone 50 mg tablet 50 mg PO BEDTIME 12/18/23 12/18/23 Allergies Allergy/AdvReac Type Severity Reaction Status Date / Time Latex, Natural Rubber Allergy Rash Verified 09/13/24 10:30 Penicillins Allergy Rash Verified 09/13/24 10:30 Review of Systems Review of Systems: Yes all other systems are reviewed and are negative PMFSH Past Medical History Attestation statement: The following information was validated with the patient. Source: old records reviewed Medical History History of spinal stenosis Surgical History Hx of shoulder surgery (06/06/23) History of hip replacement Hx of tonsillectomy H/O: hysterectomy H/O mastectomy Social History Social History Patient Tobacco Use Status: Never used Tobacco Advance Directives: No Advance Directives Information Provided: No Do you have a plan to hurt others: No Plan Current occupational status: employed Current occupation: [employer] Physical Exam ED Vital Signs: Vital Signs - 24 hr 09/13/24 10:29 09/13/24 17:44 Temperature 97.6 F 98.3 F Pulse Rate 69 68 Respiratory Rate 16 16 Blood Pressure 137/85 127/85 Pulse Oximetry 98 97 Oxygen Delivery Method Room Air Room Air BMI result Body Mass Index 21.8 Course Reevaluation(s) Reevaluation #1: CT imaging without acute intracranial pathology, reviewed these findings with patient. Advised outpatient follow-up PCP and Ophthalmology. Discussed strict return precautions. Ambulatory with steady gait. No focal neurological deficits. Stable for discharge home at this time. Time: 20:53 Medical Decision Making Medical Decision Making MDM Narrative: Patient is a 64-year-old female with past medical history of asthma, depression, visual migraine, breast cancer S/P bilateral mastectomy and chemotherapy in remission over the past 2 years who presents emergency department for evaluation of increased frequency of visual migraines over the past 2 weeks as per HPI. Overall she is well-appearing, nontoxic, afebrile. She has no focal neurological deficits on examination. Given her past medical history, plan to obtain head CT to exclude acute intracranial pathology that might explain a a reason for her increased visual migraines. Reviewed workup obtained prior to my assumption of care including a CBC which is without leukocytosis anemia or thrombocytopenia. No electrolyte derangement. No MARIE. Mildly elevated AST/ALT 92/1 0 8th with benign abdominal examination unlikely acute hepatobiliary etiology. Urinalysis without evidence to suggest infection or microscopic hematuria. Differential Diagnosis Differential Diagnoses: The differential diagnosis associated with the presentation includes (See narrative above) Admission/Observation Consideration of admission/observation: Escalation of care including admission/observation considered Lab Data MDM Lab Attestation statement: I reviewed the patient's lab results. (See narrative above) 09/13/24 12:49 09/13/24 12:49 Labs: Lab Results 09/13/24 09/13/24 Range/Units 12:49 17:51 WBC 6.9 (4.8-10.8) X10*3/uL RBC 4.86 (4.20-5.50) X10*6/uL Hgb 14.2 (12.0-16.0) g/dl Hct 44.5 (37.0-47.0) % MCV 91.6 (80.0-98.0) fL MCH 29.2 (27.0-33.0) pg MCHC 31.9 (31.0-35.0) g/dl RDW 13.1 (11.0-16.0) % Plt Count 242 (160-400) X10*3/uL MPV 9.8 (9.4-12.3) fL Immature Gran % (Auto) 0.3 (0.0-0.4) % Neut % (Auto) 71.9 (45-73) % Lymph % (Auto) 15.0 L (20-40) % [place]verse % (Auto) 8.5 (2-11) % Eos % (Auto) 3.1 (0-4) % Baso % (Auto) 1.2 (0-2) % Lymph # (Auto) 1.0 L (1.2-4.9) X10*3/uL [place]verse # (Auto) 0.6 (0.1-1.2) X10*3/uL Eos # (Auto) 0.2 (0.0-0.4) X10*3/uL Baso # (Auto) 0.1 (0.0-0.2) X10*3/uL Abs Immat Gran (auto) 0.02 (0.00-0.03) X10*3/uL Absolute Neuts (auto) 4.9 (2.0-8.3) x10*3/uL Absolute Nucleated RBC 0.000 (0.0-0.012) X10*3/uL Nucleated RBC % (auto) 0.0 (0.0-0.2) /100WBC Sodium 138 (135-145) mmol/L Potassium 4.8 (3.3-5.1) mmol/L Chloride 106 (96-108) mmol/L Carbon Dioxide 26 (22-29) mmol/L Anion Gap 11 L (12-20) BUN 12 (9-16) mg/dL Creatinine 0.67 (0.5-1.4) mg/dL Estim Creat Clear Calc 89.3 Estimated GFR > 60 Random Glucose 115 (60-115) mg/dL Calcium 9.0 (8.4-10.2) mg/dL Magnesium 2.1 (1.6-2.6) mg/dL Total Bilirubin 0.4 (0.0-1.0) mg/dL AST 92 H (5-31) U/L ALT 108 H (0-31) U/L Alkaline Phosphatase 151 H (39-117) U/L Total Protein 6.5 (6.5-8.0) g/dL Albumin 3.8 (3.5-5.0) g/dL Urine Color Yellow Urine Appearance Clear Urine pH 5.5 (5.0-9.0) Ur Specific [place] 1.015 (1.005-1.025) Urine Protein Negative (Neg-Trace) mg/dL Urine Glucose (UA) Negative (Negative) mg/dL Urine Ketones Negative (Negative) mg/dL Urine Blood Negative (Negative) Urine Nitrite Negative (Negative) Ur Leukocyte Esterase Moderate (2+) H (Negative) Urine RBC 0-2 (0-2) /HPF Urine WBC 6-10 H (0-5) /HPF Ur Squamous Epith Cells 0-2 (0-2) /HPF Urine Bacteria None Seen (None Seen) Hyaline Casts 0-2 (0-2) /LPF Radiology Impression Discussion of test interpretation with radiology: I have reviewed the radiologist's reading. Radiologist Impression: CT head without contrast Comparison: None Findings: No intra-axial mass, midline shift, hydrocephalus, or acute hemorrhage. No significant atrophy-like change or white matter disease. Maxillary sinus mucosal thickening is present with opacification of scattered ethmoid air cells and bilateral frontal sinuses. Mastoid air cells are clear. The orbits are unremarkable. No skull fracture. IMPRESSION: 1. No acute intracranial findings. Chronic Conditions Patient?s care impacted by: Other (See narrative above) Discharge Plan Discharge Clinical Impression: Migraine Patient Disposition: Home, Self-Care Additional Instructions: CT imaging of the brain did not show any abnormal findings that might suggest a cause for the increased frequency in your visual migraines as discussed. Blood work today was very reassuring. Please contact your primary care doctor to arrange for a follow-up visit, additionally consider outpatient follow-up with your community support worker Prescriptions: No Action duloxetine 60 mg capsule,delayed release(DR/EC) 60 mg PO DAILY albuterol sulfate 90 mcg/actuation HFA aerosol inhaler 2 puff inhalation Q6H PRN (Reason: wheezing) montelukast 10 mg tablet 10 mg PO DAILY trazodone 50 mg tablet 50 mg PO BEDTIME Referrals: bA Carver MD [Primary Care Provider] - Print Language: Citizen Of [place]
[2024-09-13 21:29] VITALS: BP 123/78; PULSE 65; RESP 16; TEMP 36.9; O2SAT 95
== END 2024-09-13 21:29 | disposition home or self-care (01) ==
PROVIDERS: Physician Assistant Medical; Emergency Provider Emergency Medicine Emergency Medical Services; PCP Family Medicine
DX: G43.909 Migraine, unspecified, not intractable, without status migrainosus (principal); Z79.899 Other long term (current) drug therapy
CPT/HCPCS: 36415; 70450; 80053; 81001; 83735; 85025; 87086; 99283; 99284

== ENCOUNTER → 2024-09-13 18:54 | Outpatient (BNV) | payer OTHER, SELFPAY | PROVIDERS: Emergency Provider Emergency Medicine Emergency Medical Services; PCP Family Medicine; Visit Provider General Practice | DX: G43.B0 Ophthalmoplegic migraine, not intractable (principal) | CPT/HCPCS: 70450 ==

== ENCOUNTER 2024-10-27 16:00 | Outpatient (REF) | payer OTHER, SELFPAY ==
--- NOTE | ~2024-10-27 | MR_ITS ---
EXAMINATION: MR ABDOMEN WITHOUT THEN WITH IV CONTRAST HISTORY: METS FROM MALIGNANT TUMOR OF BREAST COMPARISON: None TECHNIQUE: Axial in and out of phase T1-weighted gradient echo, axial diffusion weighted, and axial and coronal HASTE T2 with fat saturation images were obtained through the abdomen. Subsequently, fat suppressed axial and coronal T1-weighted images were obtained after the intravenous administration of 7 mL Gadavist. FINDINGS: The liver demonstrates markedly heterogeneous signal intensity with diffuse edema peripherally. Multiple discrete metastatic deposits are identified which are best seen on diffusion-weighted images. There is a 1.3 cm lesion in segment IV (series 7 image 11) and a 9 mm lesion more inferiorly in segment IV (series 7, image 17). There is a 9 mm lesion in segment VIII (series 7, image 16). There is a 2.0 cm lesion in segment III (series 7, image 23). Multiple additional smaller lesions are identified. It is difficult to exclude diffusely infiltrative metastatic disease due to the extensive hepatic edema and heterogeneous enhancement, particularly at the dome of the right lobe. The hepatic and portal veins are patent. There is no intra or extrahepatic biliary ductal dilatation. The gallbladder, spleen, pancreas, adrenals, and kidneys are unremarkable. There is trace perihepatic ascites. There is a small right pleural effusion. A catheter is seen in the right chest wall which appears to be within the pleural space. There is enhancement of the right pleura which may be inflammatory in nature or could represent metastatic disease. There is fluid and edema in the right chest wall which likely due to placement of the catheter. There is airspace disease at the right lung base which may represent atelectasis or pneumonia. There are multiple pulmonary nodules identified at the left lung base suspicious for metastatic disease (series 6, images 5, 7, and 9). There are innumerable lesions seen within the vertebral bodies and ribs, consistent with osseous metastatic disease. MR/MR abdomen wo/w con IMPRESSION: 1. Diffuse hepatic metastatic disease with multiple focal lesions identified as enumerated above. Marked hepatic edema and heterogeneous enhancement, suspicious for diffusely infiltrative metastatic disease. 2. Diffuse osseous metastatic disease. 3. Right-sided pleural catheter in place. Small right pleural effusion. Diffuse right pleural enhancement may represent inflammation or neoplasm. 4. Pulmonary nodules at the left lung base, suspicious for metastatic disease. Electronically signed by: Srikanth Barksdale MD 10/28/2024 08:07 AM EDT
--- OUTSIDE RECORDS SUMMARY | 2024-10-27 16:29 | XMS_ITS | Data Portability ---
Author Organization [facility], [facility] Address [address] [place] [address] Care Team Providers Care Ecotherapist Name Role Phone BRIALIZETH LASHA Primary Care Provider Assessment Encounter Date Assessment Date Assessment LastModified by Organization Details LastModified Time 06/17/2024 06/17/2024 Plan: 1 x/week for 4-8 weeks. Plan to use CPT codes: 09914 Therapeutic Exercise 57870 Neuromuscular ReEducation 88832 Manual 58592 Therapeutic Activity A: Pt is a 64 year old reporting to outpatient physical therapy with signs and symptoms consistent with: residual dizziness after an isolated vertiginous event (with nausea) that seems to be cervicogenic > visual in nature Exam findings reveal: dizziness increased with cervical extension, limitations of cervical L moreso than R rotation and cervical flexion, min oculomotor hypofunction and limited postural stability with oculomotor screen in sitting Functional limitations include: balance, unsteadiness, dizziness, fatigue related to dizziness, quick head movements, housework/yardwo rk, concentration, maneuvering in the dark, looking up, traveling. Response to treatment: pt demonstrates initial HEP safely and with effective technique. Improved OA FRS/ERS mobility with MET. Skilled PT is reasonable and indicated to address exam findings and maximize safe painfree level of function. Next visit: improve cervical/upper cervical mobility, progress adaptation Goals: STG/LTG Time to Achieve Goal Progress per IE Comment STG 4 weeks Oculomotor screen WFL without compensatory movements x10 ea sitting. new STG 1 week Screen mCTSIB and tandem/single leg stance. new STG 4 weeks Improve cervical L rotation AROM to >60degrees to improve postural control while turning to look. new LTG 8 weeks Able to turn head and look 100% of the time without dizziness to improve safety. new LTG 8 weeks mCTSIB and tandem/single leg stance WFL all conditions to improve safety. new LTG 8 weeks Independent in comprehensive HEP. new Treatments may include (as appropriate/as indicated): Therapeutic exercise/Neuromu scular Reeducation/Ther apeutic Activities/Atten ded Electrical Stimulation for strength, ROM, flexibility, endurance, power, functional mechanics/postur es/activities; coordination/mot or planning/motor control; balance; canalith repositioning; proprioception; stability; self care management; home exercise instruction; manual; modalities; gait training; dry needling; taping. [email or web address] Not available 06/17/2024 09:27:37 06/26/2024 06/26/2024 Viviana presents with continued cervicogenic/vis ual dizziness. R shoulder pain may be contributing to neck dysfunction. Used manual and progressed adaptation exercise to continue addressing neck mobility/dizzine ss. Skilled PT is reasonable and indicated to address exam findings and maximize safe painfree level of function. Next visit: improve cervical/upper cervical mobility, progress adaptation Goals: STG/LTG Time to Achieve Goal Progress per IE Comment STG 4 weeks Oculomotor screen WFL without compensatory movements x10 ea sitting. new STG 1 week Screen mCTSIB and tandem/single leg stance. new STG 4 weeks Improve cervical L rotation AROM to >60degrees to improve postural control while turning to look. new LTG 8 weeks Able to turn head and look 100% of the time without dizziness to improve safety. new LTG 8 weeks mCTSIB and tandem/single leg stance WFL all conditions to improve safety. new LTG 8 weeks Independent in comprehensive HEP. new Treatments may include (as appropriate/as indicated): Therapeutic exercise/Neuromu scular Reeducation/Ther apeutic Activities/Atten ded Electrical Stimulation for strength, ROM, flexibility, endurance, power, functional mechanics/postur es/activities; coordination/mot or planning/motor control; balance; canalith repositioning; proprioception; stability; self care management; home exercise instruction; manual; modalities; gait training; dry needling; taping. [email or web address] Not available 06/26/2024 11:52:48 Plan of Treatment Reminders Order Date Submit Date Provider Last Modified By Organization Details Last Modified Time Details Appointments None record ed. Lab None record ed. Referral None record ed. Procedures None record ed. Surgeries None record ed. Imaging None record ed. Medication Orders None record ed. Patient TargetsNo targets recorded. Patient Instructions Encounter Date Encounter Id Patient Instructions Last Modified By Organization Details Last Modified Time 06/17/2024 [id number] Access Code: [email or web address] URL: [email or web address] Date: 06/17/2024 Prepared by: Tayla Downing Exercises - smooth pursuit horizontal - 1-2 x daily - 3 sets - 10-20seconds duration: sitting, progress to standing if this exercise becomes easy. consider use of warm pack for your neck. [email or web address] Not available 06/17/2024 09:26:22 06/26/2024 [id number] Access Code: [email or web address] URL: [email or web address] Date: 06/17/2024 Prepared by: Tayla Downing Exercises - smooth pursuit horizontal - 1-2 x daily - 3 sets - 10-20seconds duration: sitting, progress to standing if this exercise becomes easy. consider use of warm pack for your neck. [email or web address] Not available 06/25/2024 16:21:12 Reason for Referral None Reported. Procedures Surgical History Date Name Laterality Status Provider Name and Address Organization Details Recorded Time 06/26/19 08693: Therapeutic Exercise completed Tayla Downing DPT [address] [place] [address], [phone], [facility] 06/26/2024 11:49:06 06/26/19 25 61889: Manual Therapy completed Tayla Downing DPT [address] [place] [address], [phone], [facility] 06/26/2024 11:48:56 06/26/19 25 Neuromuscular re-education completed Tayla Downing DPT [address] [place], [phone], [facility] 06/26/2024 11:49:25 06/17/20 24 00639: Therapeutic Exercise completed Tayla Downing DPT [address] [place] [address], [phone], [facility] 06/17/2024 09:29:18 06/17/20 24 92401: Manual Therapy completed Tayla Downing DPT [address] [place] [address], [phone], [facility] 06/17/2024 09:29:05 06/17/20 24 Neuromuscular re-education completed Tayla Downing DPT [address] [place], [phone], [facility] 06/17/2024 09:28:53 06/17/20 24 Physical Activity Counselling completed Tayla Downing DPT [address] [place], [phone], [facility] 06/17/2024 09:29:56 06/17/20 24 64013: PT Eval Low Complexity completed Tayla Downing DPT [address] [place], [address], [facility] 06/17/2024 09:28:41 Imaging Results None recorded. Procedure Notes None recorded. Medical Equipment None Reported. Medications Name Sig Start Date Stop Date Status Note LastModified by Organization Details LastModified Time anastrozole 1 mg tablet active Not Available Not Available Not Available prednisone 10 mg tablet PLEASE SEE ATTACHED FOR DETAILED DIRECTIONS active Not Available Not Available N ot Available ipratropium 0.5 mg-albuterol 3 mg (2.5 mg base)/3 mL nebulization soln INHALE 3 ML BY NEBULIZER 4 TIMES A DAY active Not Available Not Available Not Available albuterol sulfate 2.5 mg/3 mL (0.083 %) solution for nebulization active Not Available Not Available Not Available trazodone 50 mg tablet active Not Available Not Available No t Available azithromycin 250 mg tablet TAKE 2 TABLETS BY MOUTH TODAY, THEN TAKE 1 TABLET DAILY FOR 4 DAYS DIRECTED active Not Available Not Available No t Available prednisone 20 mg tablet TAKE 2 TABLETS BY MOUTH DAILY X7 DAYS active Not Available Not Available No t Available montelukast 10 mg tablet active Not Available Not Available Not Available codeine 10 mg-guaifenes in 100 mg/5 mL oral liquid TAKE 5 ML BY MOUTH EVERY 6 HOURS NEEDED FOR COUGH AND CONGESTION IN ADDITION TO NEBULIZER USE. active Not Available Not Available No t Available albuterol sulfate HFA 90 mcg/actuatio n aerosol inhaler active Not Available Not Available Not Available doxycycline hyclate 100 mg tablet TAKE 1 TABLET BY MOUTH TWICE A DAY FOR 10 DAYS active Not Available Not Available No t Available duloxetine 60 mg capsule,aria yed release TAKE 1 CAPSULE BY MOUTH EVERY DAY active Not Available Not Available No t Available Advair HFA 230 mcg-21 mcg/actuatio n aerosol inhaler INHALE 2 PUFFS BY MOUTH TWICE A DAY *RINSE MOUTH AND THROAT AFTER USE active Not Available Not Available No t Available Breo Ellipta 100 mcg-25 mcg/dose powder for inhalation active Not Available Not Available N ot Available Vitals None Recorded Social History None recorded. Functional Status None recorded. Mental Status None recorded. Family History Nothing Reported. Medical History No medical history recorded. Gynecological HistoryNo gynecological history recorded. Obstetrics History GPAL:G 0 P 0 0 0 0 Past Encounters Encounter ID Performer Location Encounter Start Date Encounter Closed Date Diagnosis/Indication Diagnosis SNOMED-CT Code Diagnosis ICD10 Code Diagnosis Note [id number] Tayla Downing DPT Physical Therapy, [address] [place] [address] 06/17/2024 08:14:09 06/17/2024 10:46:38 General unsteadiness 149882449 R26.81 [id number] Tayla Donwing DPT Physical Therapy, [address] [place] [address] 06/26/2024 09:28:33 06/28/2024 13:48:08 General unsteadiness 407279357 R26.81 Health Concerns Section Related Observation LastModified by Organization Detai ls LastModified Time None Recorded Concern Status LastModified by Organization Details LastModified Time None Recorded Advance Directives Directive None Recorded Payers Encounter Date Sequence Insurance Name Policy Number Policy Salmon Covered Member ID Salmon Member ID Guarantor Name 06/17/2024 2 [place] [facility] [id number] Viviana Abraham [id number] Viviana Abraham 06/17/2024 1 [employer] [place] [id number] Viviana Abraham [id number] Viviana Abraham 06/26/2024 1 [employer] [place] [id number] Viviana Abraham [id number] Viviana Abraham Notes Date Note Type Note Provider Name and Address Organization Details Recorded Time 06/17/2024 text/html Symptoms began about 1.5 weeks ago, was playing pickleball, sinuses were dry, bent down and up and experienced the whole world spinning. Did not fall, did throw up for about an hour. Managing symptoms with dramamine.Drove today to get here, doesn't have work today. Quality of Dizziness: initially intense spinning/vertigo, now is experiencing offness/offbalance dness with quick head motion L/R and especially up/down Timing/Duration: ; ; Triggering Circumstances: at onset with {{rolling or lying down standing up stress/illness/ allergies medicati ons trauma}}; exacerbating triggers include {{position changes moving head* looking at computer screen for a longtime busy places loud noises}}, bending.relieving factors includes: dramamine, being still Other associated symptoms: R side feels stuffy. Wears hearing aids both ears. Neck is really stiff/funky. Tayla Downing DPT [address] [place], [address], [facility] 06/17/2024 09:30:11 06/26/2024 text/html Had been feeling better, but was playing pickleball, and had spinning after picking up a ball.Mildly dizzy/nauseous today.Experiencing a sore R shoulder muscle: lateral arm, posterior scap Tayla Downing DPT [address] [place], [address], [facility] 06/26/2024 11:53:31 OBGyn Episode No OBEpisode recorded.
[2024-10-27] MEDS: gadobutroL 7.5 ML VIAL IVPUSH (17:17)
== END 2024-10-27 16:01 | disposition home or self-care (01) ==
LOC: HO.MRI 16:00
PROVIDERS: Visit Provider Internal Medicine Medical Oncology
DX: C79.9 Secondary malignant neoplasm of unspecified site (principal); C50.919 Malignant neoplasm of unspecified site of unspecified female breast
CPT/HCPCS: 74183; A9585

== ENCOUNTER → 2024-10-27 16:40 | Outpatient (BNV) | payer OTHER, SELFPAY | PROVIDERS: Visit Provider Radiology Diagnostic Radiology | DX: C78.7 Secondary malignant neoplasm of liver and intrahepatic bile duct (principal) | CPT/HCPCS: 74183 ==